=== PATIENT | female | born 1950 | race Caucasian/White ===

== ENCOUNTER 2019-03-31 18:44 | Emergency (ER) | payer MEDICARE, BC ==
[~2019-03-31] VITALS: Ht 160 cm; Wt 72.7 kg
[~2019-03-31 18:44] MED LIST: LAMO150T2 PO; LORA0.5T PO; OMEP40CA13 PO; TIZA4CAP6 PO
[2019-03-31 19:15] LABS: BASOPHILS # (AUTO) 0.1 X10'3 (0-0.2); BASOPHILS % (AUTO) 0.8 % (0-1); EOSINOPHILS # (AUTO) 0.2 X10'3 (0-0.9); EOSINOPHILS % (AUTO) 2.5 % (0-6); HEMATOCRIT 45.7 % (35.0-45.0); HEMOGLOBIN 15.5 g/dl (12.0-16.0); LYMPHOCYTES # (AUTO) 4.5 X10'3 (1.1-4.8); LYMPHOCYTES % (AUTO) 52.6 % (21-51); MEAN CORPUSCULAR HEMOGLOBIN 29.2 PG (27.0-31.0); MEAN CORPUSCULAR VOLUME 85.9 FL (78-98); MEAN PLATELET VOLUME 7.7 FL (7.4-10.4); MONOCYTES # (AUTO) 0.9 X10'3 (0-0.9); NEUTROPHILS # (AUTO) 2.9 X10'3 (1.8-7.7); NEUTROPHILS % (AUTO) 34.1 % (42-75); PLATELET COUNT 262 X10'3 (140-440); RED BLOOD COUNT 5.32 X10'6 (4.20-5.60); RED CELL DISTRIBUTION WIDTH 14.7 % (11.5-14.5); WHITE BLOOD COUNT 8.5 X10'3 (4.5-11.0)
[2019-03-31] MEDS ORDERED: normal saline 1000ML IV soln IVB ONE (19:25)
[2019-03-31] MEDS ORDERED: ondansetron/PF 4mg/2ml inj IV ONE (19:30)
[2019-03-31 19:31] LABS: PARTIAL THROMBOPLASTIN TIME 25 SECONDS (22-32)
[2019-03-31 19:33] LABS: ALANINE AMINOTRANSFERASE 63 U/L (12-78); ALBUMIN/GLOBULIN RATIO 1.1 (1.1-1.5); ALKALINE PHOSPHATASE 68 IU/L (46-116); ANION GAP 13 (8-16); ASPARTATE AMINO TRANSFERASE 34 U/L (10-37); BILIRUBIN,TOTAL 0.2 MG/DL (0.1-1.0); BLOOD UREA NITROGEN 20 MG/DL (7-18); BUN/CREATININE RATIO 23.3 (6.6-38.0); CALCIUM 8.6 MG/DL (8.5-10.1); CHLORIDE 108 MMOL/L (99-107); CREATININE 0.86 MG/DL (0.40-0.90); GLUCOSE 104 MG/DL (70-104); POTASSIUM 3.5 MMOL/L (3.5-5.1); SODIUM 144 MMOL/L (135-145); TOTAL CARBON DIOXIDE 23.5 MMOL/L (24-32); TOTAL PROTEIN 7.8 G/DL (6.4-8.2); eGFR 66 ML/MIN
[2019-03-31 19:42] LABS: TOTAL CELLS COUNTED 100
[2019-03-31 19:43] LABS: BASOPHILS % (MANUAL) 1 % (0-1); EOSINOPHILS % (MANUAL) 1 % (0-6); LYMPHOCYTES % (MANUAL) 53 % (21-51); MONOCYTES % (MANUAL) 13 % (2-12); NEUTROPHILS % (MANUAL) 32 % (42-75); PLATELET ESTIMATE NORMAL
[2019-03-31] MEDS ORDERED: meclizine 12.5mg tablet PO ONE (20:10)
[2019-03-31 20:24] VITALS: BP 128/70
[2019-03-31] MEDS ORDERED: MECL-111 PO (20:53)
== END 2019-03-31 21:37 | disposition home or self-care (01) ==
LOC: ER 18:45
DX: R42 Dizziness and giddiness (principal); R55 Syncope and collapse; G43.909 Migraine, unspecified, not intractable, without status migrainosus; J45.909 Unspecified asthma, uncomplicated; K21.9 Gastro-esophageal reflux disease without esophagitis; G89.29 Other chronic pain; F41.9 Anxiety disorder, unspecified; F32.9 Major depressive disorder, single episode, unspecified; Z90.710 Acquired absence of both cervix and uterus; Z98.890 Other specified postprocedural states
CPT/HCPCS: 36415; 70450; 71045; 80053; 83880; 84484; 85025; 85610; 85730; 93005; 96361; 96374; 99284; J2405; J7030; J8597

== ENCOUNTER 2022-08-29 08:52 | Day surgery (SDC) | payer MEDICARE, BC ==
[2022-08-29] VITALS (7 sets, daily range): BP systolic 127–154; BP diastolic 71–85
[~2022-08-29] VITALS: Ht 162.6 cm; Wt 77.2 kg
[~2022-08-29 08:52] MED LIST changes: +MECL-159 PO; -OMEP40CA13 PO; +OMEP40CA21 PO
[2022-08-29] MEDS ORDERED: LAMO25TA5 PO (09:33)
[2022-08-29] MEDS ORDERED: BACL5TAB PO (09:33)
[2022-08-29] MEDS ORDERED: acetaminophen 325mg tablet PO PRN (11:45)
--- NOTE | 2022-08-29 11:45 | NUR ---
Patient c/o 10/10 headache from base of skull and radiating to left side of head. Called Dr. Sargent. New orders for Tylenol. In addition, MD states to push fluids, caffeine and lay flat. Awaiting pharmacy approval to administer Tylenol.
[2022-08-29 12:56] LABS: APPEARANCE,CSF CLEAR; CSF RBC 1 /CU MM (0); CSF SUPERNATANT COLOR COLORLESS; CSF VOLUME 24 ML; CSF WBC CT 0 /CU MM (0-5); TUBE# COUNTED 3
[2022-08-29 15:15] LABS: GLUCOSE,CSF 55 MG/DL (40-75); TOTAL PROTEIN,CSF 28 MG/DL (30-60)
[2022-08-30 08:13] LABS: IMMUNOGLOBULIN G, QN, SERUM 1015 mg/dL (586-1602)
[2022-09-03 13:12] LABS: IMMUNOGLOBULIN G, QN CSF 1.6 mg/dL (0.0-6.7)
[2022-09-03 17:09] LABS: VDRL, CSF Non Reactive (Non Rea:<1:1)
[2022-09-04 11:17] LABS: LYME IGG P23 AB Absent (.); LYME IGG P28 AB Absent (.); LYME IGG P30 AB Absent (.); LYME IGG P41 AB Present (.); LYME IGG P45 AB Absent (.); LYME IGG P58 AB Present (.); LYME IGG P66 AB Absent (.); LYME IGG P93 AB Present (.); LYME IGG WB INTERP Negative (.); LYME IGM P23 AB Absent (.); LYME IGM P39 AB Absent (.); LYME IGM P41 AB Absent (.); LYME IGM WB INTERP Negative (.)
== END 2022-08-29 14:00 | disposition home or self-care (01) ==
LOC: SSTAY O 08:52
PROVIDERS: ATTEND Psychiatry & Neurology Neurology
DX: R27.0 Ataxia, unspecified (principal); F41.0 Panic disorder [episodic paroxysmal anxiety]; F32.A Depression, unspecified; K21.9 Gastro-esophageal reflux disease without esophagitis; G62.9 Polyneuropathy, unspecified; Z90.710 Acquired absence of both cervix and uterus; Z98.890 Other specified postprocedural states; Z79.899 Other long term (current) drug therapy; Z88.8 Allergy status to other drugs, medicaments and biological substances; Z91.040 Latex allergy status; Z82.49 Family history of ischemic heart disease and other diseases of the circulatory system; Z81.8 Family history of other mental and behavioral disorders; Z82.3 Family history of stroke; Z83.3 Family history of diabetes mellitus; Z80.9 Family history of malignant neoplasm, unspecified
CPT/HCPCS: 62328; 82040; 82042; 82164; 82784; 83873; 83916; 86592; 86617; 88108; 89051